=== PATIENT | male | born 1955 | race Caucasian/White ===

== ENCOUNTER 2020-08-13 22:17 | Outpatient (CLI) | payer MEDICARE | END 2020-08-13 22:18 | disposition EMS.NT | LOC: EMS 22:17 | DX: T23.062A Burn of unspecified degree of back of left hand, initial encounter (principal); T23.061A Burn of unspecified degree of back of right hand, initial encounter; T20.07XA Burn of unspecified degree of neck, initial encounter; X08.8XXA Exposure to other specified smoke, fire and flames, initial encounter; Y93.G3 Activity, cooking and baking; Y92.009 Unspecified place in unspecified non-institutional (private) residence as the place of occurrence of the external cause ==

== ENCOUNTER 2020-08-16 12:42 | Emergency (ER) | payer MEDICARE ==
[2020-08-16] MEDS ORDERED: cephALEXin 250 MG CAPSULE PO STA (13:34)
[2020-08-16] MEDS ORDERED: BACITRACIN ZINC OINT 1 PACKET TOP STA (13:34)
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
[2020-08-16] MEDS ORDERED: BACITRACIN ZINC OINT 14 GM TOP STA (14:01)
[2020-08-16 14:12] VITALS: BP 192/97
== END 2020-08-16 14:18 | disposition home or self-care (01) ==
LOC: ED 12:42
DX: T20.00XD Burn of unspecified degree of head, face, and neck, unspecified site, subsequent encounter (principal); T23.002D Burn of unspecified degree of left hand, unspecified site, subsequent encounter; T23.001D Burn of unspecified degree of right hand, unspecified site, subsequent encounter
CPT/HCPCS: 99282; 99284; A9270